=== PATIENT | male | born 1940 | race Caucasian/White ===

== ENCOUNTER 2020-06-15 06:24 | Inpatient (IN) ==
[2020-06-15] MEDS ORDERED: *HR* Vasopressin 20 UNIT/ML VIAL ONE (06:59)
[2020-06-15] MEDS ORDERED: Ringers Solution, Lactated 1,000 ML IVC SCH (07:00)
[2020-06-15] MEDS ORDERED: Lidocaine HCL 4 ML Topical Solution (Laryng-O-Jet Kit Sterile Pak) TP ONE (07:09)
[2020-06-15] MEDS ORDERED: *HR* FentaNYL (PF) 100 MCG/2 ML VIAL ONE (07:12)
[2020-06-15] MEDS ORDERED: *HR* HYDROMORPHONE 2 MG/ML VIAL ONE (07:12)
[2020-06-15] MEDS ORDERED: Famotidine 20 MG/2 ML VIAL IVP ONE (07:12)
[2020-06-15] MEDS ORDERED: *HR* Magnesium Sulfate 1 GM/2 ML VIAL ONE (07:13)
[2020-06-15] MEDS ORDERED: Dexamethasone 4 MG/ML VIAL ONE (07:13)
[2020-06-15] MEDS ORDERED: *HR* Rocuronium Bromide 50 MG/5 ML VIAL ONE ×2 (07:13→09:35)
[2020-06-15] MEDS ORDERED: *HR* Succinylcholine 200 MG/10 ML VIAL IVP ONE (07:13)
[2020-06-15] MEDS ORDERED: Lidocaine -MPF 2% 2 ML VIAL ONE (07:13)
[2020-06-15] MEDS ORDERED: Ondansetron 4 MG/2 ML VIAL ONE (07:13)
[2020-06-15] MEDS ORDERED: Acetaminophen IV 1,000 MG/100 ML BAG IVPB ONE (07:13)
[2020-06-15] MEDS ORDERED: *HR* Labetalol 20 MG/4 ML SYRINGE IVP PRN (07:19)
[2020-06-15] MEDS ORDERED: levoFLOXacin 500 MG/100 ML 500 MG/100 ML BAG IVPB ONE (07:25)
[2020-06-15] MEDS: *HR* HYDROmorphone PF 0.5 MG/0.5 ML SYRINGE IVP PRN ×2 (12:11→12:21)
[2020-06-15] MEDS ORDERED: Naloxone 0.4 MG/ML INJ IVP PRN (13:01)
[2020-06-15] MEDS ORDERED: *HR* OxyCODONE Immed Rel 5 MG TABLET PO PRN (13:01)
[2020-06-15] MEDS ORDERED: *HR* Belladonna Alkaloids/Opium 30 MG RECTAL SUPPOSITORY RC PRN (13:01)
[2020-06-15] MEDS ORDERED: *HR* HYDROcodone/Acet 5/325 mg TABLET PO PRN (13:01)
[2020-06-15] MEDS ORDERED: Hyoscyamine SL 0.125 MG TAB.SUBL SL PRN (13:01)
[2020-06-15] MEDS ORDERED: Ondansetron 4 MG/2 ML VIAL IVP PRN (13:01)
[2020-06-15] MEDS: 0.9 % Sodium Chloride 1,000 ML IVC SCH ×2 (13:14→19:32)
[2020-06-16] MEDS: 0.9 % Sodium Chloride 1,000 ML IVC SCH (03:29)
[2020-06-16 06:01] LABS: Basophils % 0.1 %; Hematocrit 33.6 % (37.5-50.1); Hemoglobin 11.2 g/dL (12.9-16.9); Immature Granulocytes % 0.7 % (0-4); Lymphocytes # 0.8 K/mcL (0.6-4.6); Lymphocytes % 5.8 %; Mean Corpuscular HGB Conc 33.3 g/dL (31.6-35.5); Mean Platelet Volume 9.6 fL (9.4-12.4); Monocytes # 1.4 K/mcL (0.0-1.3); Monocytes % 10.2 %; Neutrophils # 11.8 K/mcL (1.6-8.9); Platelet Count 143 K/mcL (140-400); Red Cell Distribution Width 12.3 % (11.5-14.5); Segmented Neutrophils % 83.2 %; White Blood Count 14.2 K/mcL (4.3-11.1)
[2020-06-16 06:22] LABS: Calcium 8.4 mg/dL (8.6-10.3); Potassium 4.5 mEq/L (3.5-5.1)
[2020-06-16] MEDS ORDERED: Simethicone 80 MG TAB.CHEW PO PRN (10:07)
[2020-06-16] MEDS ORDERED: 0.9 % Sodium Chloride 1,000 ML IVC SCH (10:09)
[2020-06-17 06:40] VITALS: BP 120/71
== END 2020-06-17 12:29 | disposition home or self-care (01) | DRG 658 ==
LOC: SAMDAY 06:24 → 3ANU 12:55
PROVIDERS: ADMIT Urology; ATTEND Urology